=== PATIENT | male | born 1970 | race African-American/Black ===

== ENCOUNTER → 2025-04-20 | Day surgery (SDC) | payer MEDICARE ==
[2025-04-14 13:52] LABS: EST GLOMERULAR FILTRATION RATE 51.0 ML/MIN (>=60)
[~2025-04-20] MED LIST: ACETAMINOPHEN 1000 MG/100 ML 100 ML IV ONE; ASPIRIN81 MG PO; B-COMPLEX1 EACH; DEXAMETHASONE SOD PHOS INJ 4 MG/ML SDV ONE; FENTANYL CITRATE/PF 100MCG/2 ML INJ ONE; FLOMAX0.4 MG PO; FUROSEMIDE40 MG PO; LABETALOL HCL 0 ML ONE; LANTUS 3ML100 UNITS/ SQ; LIDOCAINE HCL 2% LOCAL INJ 5 ML SDV VIAL INJ ONE; LIPITOR20 MG PO; METFORMIN HCL500 MG PO; ONDANSETRON HCL INJ 2MG/ML 2ML 2 MG/ML VIAL ONE; OREGANO OIL 501 EACH; OZEMPIC1 MG/0.71; PROPOFOL IV EMULSION 10 MG/ML 20 ML VIAL ONE; ROCURONIUM BROMIDE 1 ML IV ONE; SODIUM CHLORIDE 0.9% 100 ML ONE; SUCCINYLCHOLINE CHLORIDE 20 MG/ML 10ML VIAL ONE; SUGAMMADEX SODIUM 200 MG/2 ML VIAL IV ONE
[2025-04-20 07:20] LABS: BASOPHILS % 0.5 % (0.0-1.0); EOSINOPHILS % 2.8 % (0.0-6.0); LYMPHOCYTES % 35.0 % (18.0-39.1); MONOCYTES % 7.8 % (4.4-11.3); NEUTROPHILS % 53.6 % (38.7-80.0); RED CELL DISTRIBUTION WIDTH 15.5 % (11.7-14.4)
[2025-04-20] MEDS: LACTATED RINGER'S 1,000 ML ONE (07:35)
[2025-04-20] MEDS: CEFAZOLIN SODIUM 2 GM ONE (07:36)
[2025-04-20] MEDS: INSULIN REGULAR, HUMAN 100 UNIT/1 ML ONE (07:38)
[2025-04-20 09:31] VITALS: TEMP 97.2
[2025-04-20] MEDS: FENTANYL CITRATE/PF 100MCG/2 ML INJ ONE (09:42)
[2025-04-20] MEDS: KETOROLAC TROMETHAMINE 30 MG/ML VIAL ONE (10:05)
[2025-04-20 11:05] VITALS: BP 129/93; PULSE 84; RESP 16; O2SAT 100
== END | disposition home or self-care (01) ==
LOC: OR 05:13 → EDSEX 09:30
PROVIDERS: ATTEND Orthopaedic Surgery
DX: M75.122 Complete rotator cuff tear or rupture of left shoulder, not specified as traumatic (principal); S43.432A Superior glenoid labrum lesion of left shoulder, initial encounter; S46.212A Strain of muscle, fascia and tendon of other parts of biceps, left arm, initial encounter; M75.42 Impingement syndrome of left shoulder; M75.02 Adhesive capsulitis of left shoulder; M12.212 Villonodular synovitis (pigmented), left shoulder; E11.9 Type 2 diabetes mellitus without complications; K76.0 Fatty (change of) liver, not elsewhere classified; N20.0 Calculus of kidney; N40.0 Benign prostatic hyperplasia without lower urinary tract symptoms; F32.A Depression, unspecified; M54.50 Low back pain, unspecified; I69.354 Hemiplegia and hemiparesis following cerebral infarction affecting left non-dominant side; E66.01 Morbid (severe) obesity due to excess calories; X58.XXXA Exposure to other specified factors, initial encounter; Z01.810 Encounter for preprocedural cardiovascular examination; Z01.812 Encounter for preprocedural laboratory examination; Z01.818 Encounter for other preprocedural examination; Z79.82 Long term (current) use of aspirin; Z79.84 Long term (current) use of oral hypoglycemic drugs; Z79.4 Long term (current) use of insulin; Z79.85 Long-term (current) use of injectable non-insulin antidiabetic drugs; Z79.899 Other long term (current) drug therapy
CPT/HCPCS: 29824; 29826; 29827; 36415 ×2; 71046; 80048; 82948; 85025; 93005; C1713; J0131; J0330; J1100; J1885; J2003; J2405; J2704; J3010; J7050; J7121